=== PATIENT | male | born 1975 | race Caucasian/White ===

== ENCOUNTER 2017-08-13 09:58 | Day surgery (SDC) | payer OTHER ==
[~2017-08-13 09:58] MED LIST: ACETAMINOPHEN 1,000 MG/100 ML BTL IV ONE; CEFAZOLIN 2 Gram 2 GM/50 ML BAG IVPB ONE
[2017-08-13] MEDS ORDERED: KETOROLAC 30 MG/ML VIAL IVP ONE (09:59)
[2017-08-13] MEDS ORDERED: SEVOFLURANE 250 ML INH ONE (09:59)
[2017-08-13] MEDS ORDERED: PROPOFOL 10 MG/ML VIAL IV ONE (09:59)
[2017-08-13] MEDS ORDERED: FENTANYL PF 100MCG/2ML VIAL IV ONE (09:59)
[2017-08-13] MEDS ORDERED: MIDAZOLAM HCL 2MG/2ML VIAL IV ONE (09:59)
[2017-08-13] MEDS ORDERED: ONDANSETRON HCL IV 4 MG/2 ML VIAL IVP ONE (09:59)
[2017-08-13] MEDS ORDERED: LIDOCAINE 1% MDV (10MG/ML) 20ML VIAL SQ ONE (09:59)
--- NOTE | 2017-08-14 07:38 | Operative Note ---
DATE OF SURGERY: 08/13/2017. PREOPERATIVE DIAGNOSIS: RIGHT KNEE ARTHROSIS AND POSSIBLE MENISCUS TEAR. 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 OPERATION: 1. Diagnostic arthroscopy. 2. Arthroscopic debridement, chondroplasty of the femoral trochlea. 3. Arthroscopic debridement, chondroplasty of the lateral femoral condyle. SURGEON: Mark Gamboa M.D. ANESTHESIA: LMA. Thai Bowens CRNA. COMPLICATIONS: None. ESTIMATED BLOOD LOSS: Minimal. 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 INDICATIONS: This is a 42-year-old male who has had persistent pain and dysfunction, catching, locking, and snapping in his knee with mechanical symptoms from the patellofemoral joint for several months. He has failed nonoperative treatment including anti-inflammatories, injections, and therapy, and he scheduled for the procedure above. I explained to him all risks and benefits of surgery in detail for the diagnosis and procedures including but not limited to infection, nerve injury, vessel injury, persistent pain, stiffness, numbness and tingling in his knee, the fact that if he has arthrosis of the knee the procedure would not cure the condition and he could require further procedures such as knee replacement. All of his questions were answered. The treatment and course were outlined and he agreed to proceed. PROCEDURE: The patient brought to the operating room. He was placed in the supine position and was prepared for surgery. LMA anesthesia was induced. His right lower extremity and knee were prepped and draped in sterile fashion. The right knee was prepped again with ChloraPrep and draped. Intraoperative time out was performed. Preoperative examination revealed full knee range of motion. No effusion. No ligament instability. Next, the knee was injected with 0.5% Marcaine with epinephrine. A superolateral inflow port was established, an inferomedial outflow port was established, and diagnostic arthroscopy was performed. The suprapatellar pouch was normal. The medial gutter was normal. The lateral compartment revealed a full-thickness, small cartilage defect in the lateral femoral condyle. This was debrided medially with a shaver. It was about a quarter size here. The remainder of the cartilage was intact on the tibial and femoral side. The meniscus was probed thoroughly and was entirely intact. The intracondylar notch was normal. Anterior cruciate ligament and posterior cruciate ligaments were intact. The medial compartment was completely normal. The cartilage here was normal. The meniscus was probed entirely and it was normal. The medial gutter was normal. The patellofemoral compartment revealed significant disease. After debridement of loose cartilage flaps he had a large, [id number] area in the femoral trochlea of full-thickness, grade 4 cartilage defect here. However, in the patellar side, there was only some fissuring and it was otherwise normal. I thoroughly debrided this area back to a smooth, stable surface. The microfracture set was not available. This completed our procedures. The scope was removed. He was given an injection with 0.5% Marcaine with epinephrine and 8.0 mg of Depo Medrol. He received Toradol. Sterile dressing was applied as was an Chris wrap. The patient tolerated the procedure well. No intraoperative complications. Sponge, needle, and blade counts correct. Recovery room stable, neurovascularly intact. He will be discharged as an outpatient and will follow up in two weeks. JOB NUMBER: [id number] cc: Tyshawn Chowdary
== END 2017-08-13 15:30 | disposition home or self-care (01) ==
LOC: SUR 09:58
PROVIDERS: ATTEND Orthopaedic Surgery
DX: M22.2X2 Patellofemoral disorders, left knee (principal); M24.10 Other articular cartilage disorders, unspecified site; J45.909 Unspecified asthma, uncomplicated; Z86.718 Personal history of other venous thrombosis and embolism
CPT/HCPCS: J1885; J2405